=== PATIENT | female | born 1985 | race Caucasian/White ===

== ENCOUNTER 2023-02-10 15:35 | Outpatient (CLI) | payer OTHER | END 2023-02-10 15:36 | disposition home or self-care (01) | LOC: CSHRAD 15:35 | PROVIDERS: ATTEND Obstetrics & Gynecology | DX: T19.3XXA Foreign body in uterus, initial encounter (principal); Z98.51 Tubal ligation status | CPT/HCPCS: 74018 ==

== ENCOUNTER 2024-04-11 15:14 | Outpatient (CLI) | payer OTHER | END 2024-04-11 15:15 | disposition home or self-care (01) | LOC: CSHULT 15:14 | DX: R10.2 Pelvic and perineal pain (principal) | CPT/HCPCS: 76856 ==